=== PATIENT | male | born 1970 | race Caucasian/White ===

== ENCOUNTER → 2024-03-29 18:24 | Outpatient (REF) | payer OTHER, SELFPAY | LOC: PAVMRI 18:24 | PROVIDERS: ATTENDING PHYSICIAN Orthopaedic Surgery Sports Medicine; FAMILY PHYSICIAN Family Medicine | DX: M25.512 Pain in left shoulder (principal) | CPT/HCPCS: 72141; 73221 ==

== ENCOUNTER → 2024-04-10 16:23 | Outpatient (REF) | payer OTHER, SELFPAY | LOC: MRI 3T 16:23 | PROVIDERS: ATTENDING PHYSICIAN Family Medicine | DX: G93.89 Other specified disorders of brain (principal) | CPT/HCPCS: 70553; A9575 ==